=== PATIENT | female | born 1970 | race African-American/Black ===

== ENCOUNTER 2020-06-26 07:32 | Emergency (ER) | payer OTHER ==
[~2020-06-26] VITALS: Ht 167.6 cm; Wt 210.9 kg
[~2020-06-26 07:32] MED LIST: ALDACTONE; ALDACTONE25 MG PO; AMLODIPINE BESY10 MG; AMLODIPINE BESY10 MG PO; CATAPRESS3 TD; COREG; COREG PO; FUROSEMIDE; HYDROCHLOROTH12.5 MG; K-DUR 20 MEQ T20 MEQ PO; PRINIVIL20 MG; ZESTRIL20 MG PO
== END 2020-06-26 16:51 ==
LOC: ER 07:32
DX: I46.9 Cardiac arrest, cause unspecified (principal); N18.6 End stage renal disease; Z99.2 Dependence on renal dialysis; Z79.899 Other long term (current) drug therapy